=== PATIENT | male | born 1950 | race Caucasian/White ===

== ENCOUNTER → 2016-12-17 | Outpatient (CLI) | payer MEDICARE ==
[~2016-12-17] MED LIST: ADVAIR 250-501 EAC1 IH; ASPIRIN EC81 M1 PO; CARDIZEM CD120 M1 PO; CRESTOR10 MG PO; CYMBALTA30 MG PO; DEXILANT60 MG PO; LIPITOR20 MG PO; LISINOPRIL10 MG PO; METFORMIN PO; NORVASC PO; PERCOCET5/325; SPIRIVA18 MCG INH; ZYRTEC10 M2 PO
--- NOTE | ~2016-12-17 | NM19 ---
[facility] A Service of [facility] & [facility] RADIOLOGY TEXT RESULTS PATIENT: ROXANN LEWIS LOCATION: [facility] : 46 UNIT #: [id number] AGE: [address]: Manuel Smith MD SEX: M ORDER DR: [id number] [facility] [address] [place], [place] [address] [id number] O MR#: [id number] Acc #: [id number] NAME: ROXANN LEWIS : 1950 SEX: M STUDY DATE/TIME: 12/17/2016 10:40 UNIT: [facility] ROOM: STUDY DESCRIPTION: PR Gastric Emptying Study Attending Physician: Manuel Smith M.D. Referring Physician: Manuel Smith M.D. Ordering Physician: Manuel Smith M.D. Primary Care Physician: Jennifer Granger M.D. MEDICAL IMAGING REPORT This report is preliminary unless electronic signature is present EXAM Gastric emptying scan 12/17/2016 HISTORY Nausea and vomiting intermittently for 9 months with abdominal bloating, gastroesophageal reflux disease, epigastric tenderness, gastroesophageal reflux, early satiety, weight gain and appetite loss. FINDINGS The patient ingested 500 microcuries of technetium 99m tagged sulfur colloid in eggs. Images of the upper abdomen were obtained for 60 minutes. The gastric half-emptying time was calculated to be 45 minutes (normal is between 65 and 90 minutes). IMPRESSION Rapid gastric half emptying time of 45 minutes. Dictated by... Ash Barakat M.D. THIS IS AN ELECTRONICALLY VERIFIED REPORT Ash Barakat M.D. at 12/18/2016 8:00 AM YOLANDA/cristiane TD: 12/17/2016 17:41 JOB #: [id number] MEDICAL IMAGING REPORT Page 1 of 1 COPY
== END | disposition home or self-care (01) ==
LOC: CNUC 09:35
DX: R11.2 Nausea with vomiting, unspecified (principal)
CPT/HCPCS: 78264; A9541